=== PATIENT | male | born 1965 | race Caucasian/White ===

== ENCOUNTER 2024-08-16 14:05 | Outpatient (CLI) | payer BC, SELFPAY ==
--- NOTE | 2024-08-16 14:15 | CRLHL7_ITS ---
For Patients: As a result of the Century Cures Act, medical imaging exams and procedure reports are released immediately into your electronic medical record. You may view this report before your referring provider. If you have questions, please contact your health care provider. Indication: Status post spinal fusion. Technique: Two views lumbar spine Comparison: None. Findings/impression: Status post posterolateral fusion at L4-L5. No evidence of hardware loosening or failure. Mild convex leftward curvature centered at L4. Trace L4 anterolisthesis. Moderate disc space narrowing at L3-L4 and mild disc space narrowing at L2-L3 and L5-S1. Dictated by Gurdeep Kelley MD @ 08/20/2024 12:09:03 PM (Electronically Signed)
== END 2024-08-16 14:06 | disposition home or self-care (01) ==
LOC: RAD 14:11
PROVIDERS: PCP Neurological Surgery; Visit Provider Neurological Surgery
DX: M43.26 Fusion of spine, lumbar region (principal); M51.26 Other intervertebral disc displacement, lumbar region
CPT/HCPCS: 72100